=== PATIENT | female | born 2000 | race Caucasian/White ===

== ENCOUNTER 2020-09-10 06:49 | Outpatient (CLI) | payer OTHER, SELFPAY ==
--- NOTE | ~2020-09-10 | CT_ITS ---
EXAMINATION: CT sinus wo con DATE: 09/10/2020 07:03 INDICATION: Deviated nasal septum TECHNIQUE: Computed tomography (CT) of the paranasal sinuses was performed without intravenous contra st. The dose-length product was 266.38 mGy-cm. Automated exposure control and iterative reconstructio n technique were employed. COMPARISON: None FINDINGS: There is minimal mucosal thickening of the left anterior ethmoid air cells and the sphenoid sinuses. Mastoids are pneumatized. No air-fluid levels. No mucoperiosteal reaction. Rightward nasal septal deviation. Ostiomeatal units are patent. Left-sided casandra bullosa. Mastoids are pneumatized. IMPRESSION: 1. Mild sinus disease. Reviewed, dictated and finalized at location B. IMPRESSION: 1. Mild sinus disease.
== END 2020-09-10 06:50 | disposition home or self-care (01) ==
LOC: ANHIMG 06:51
PROVIDERS: PCP Internal Medicine; Visit Provider Otolaryngology
DX: J34.2 Deviated nasal septum (principal); J32.9 Chronic sinusitis, unspecified
CPT/HCPCS: 70486

== ENCOUNTER 2020-10-03 01:35 | Outpatient (CLI) | payer OTHER, SELFPAY ==
[2020-10-03 21:19] LABS: SARS-CoV-2 RNA PCR Negative
== END 2020-10-03 01:36 | disposition home or self-care (01) ==
LOC: ANHCOVIDDT 01:35
PROVIDERS: PCP Internal Medicine; Visit Provider Otolaryngology
DX: Z01.812 Encounter for preprocedural laboratory examination (principal); Z20.828 Contact with and (suspected) exposure to other viral communicable diseases
CPT/HCPCS: 87635; C9803; U0003

== ENCOUNTER 2020-10-06 01:15 | Day surgery (SDC) | payer OTHER, SELFPAY ==
[2020-09-28 14:23] VITALS: BMI 25.8
--- NOTE | 2020-10-05 06:21 | PM.HPGS ---
History of Present Illness History of Present Illness Consent: Risks, benefits, and alternatives have been discussed and questions answered. Patient agrees to proceed with procedure. Chief complaint: Nasal Septal Deviation Narrative: Jose Holbrook is a 20 year old female excision. Review of Systems ENT: Reports nasal obstruction PMFSH Past Medical History Medical History (Updated 09/14/20 @ 10:43 by Sharita Betancur) Gonorrhea Family History Family History Grandparent Cancer Social History Social History Smoking status: Never smoker Spiritual care concerns: No Meds Home Medications and Allergies Home Medications Medication Instructions Recorded Confirmed Type No Home Medications 09/28/20 09/28/20 History Allergies Allergy/AdvReac Type Severity Reaction Status Date / Time No Known Allergies Allergy Verified 09/28/20 14:23 Exam Narrative: Exam Narrative: the nose was examined and the septum was deviated with partial obstruction to the affect that side the turbinates were swollen there was swelling on the other side of the turbinate plan septoplasty possible turbinectomy Assessment and Plan Additional Plan plan is for a septoplasty to alleviate nasal obstruction and possible bilateral turbinectomy
--- NOTE | 2020-10-05 10:03 | WPDANESEPPF ---
Anes - Initial Pre Proc Eval Procedure: Operation Date: 10/06/20 09:00 Proposed Procedures p Septoplasty - Xavier Razo MD Date/Time: 10/05/20 10:03 Surgeon: Xavier Razo MD Pre Op Diagnosis: Nasal Septal Deviation Patient Data Age: 20 Gender: F Height: 1.68 m Weight: 72.57 kg Allergies Allergy/AdvReac Type Severity Reaction Status Date / Time No Known Allergies Allergy Verified 10/06/20 07:20 Home Medications Medication Instructions Recorded Confirmed Type No Home Medications 09/28/20 09/28/20 History Patient hx anesthesia problems: post op nausea/vomiting Family hx anesthesia problems: none PMFSH Past Medical History Medical History (Updated 09/14/20 @ 10:43 by Sharita Betancur) Gonorrhea Family History Family History Grandparent Cancer Social History Social History Smoking status: Never smoker Spiritual care concerns: No Anes - Eval Final PreProcedure Day of Procedure 10/05/20 10:03 Patient weight: overweight Heart: regular rate and rhythm Lungs: clear to auscultation and normal air movement Airway: Mallampati scale class II Neurological: alert and oriented Last oral intake: >/= 8 hours ASA classification: I Emergent: no Anesthetic plan: proceed Anesthesia type and monitoring: general ETT and standard monitoring Informed Consent: The patient's anesthetic plan and its attendant risks and benefits were discussed with the patient/family/POA. Questions were solicited and answers provided to the satisfaction of the patient/family/POA.
[2020-10-06] VITALS (10 sets, daily range): BP systolic 109–127; BP diastolic 63–82; PULSE 58–91; RESP 12–16; TEMP 36.1–36.6; O2SAT 100
--- NOTE | 2020-10-06 05:16 | PM.HPGS ---
History of Present Illness History of Present Illness Consent: Risks, benefits, and alternatives have been discussed and questions answered. Patient agrees to proceed with procedure. Chief complaint: Nasal Septal Deviation Narrative: Jose Holbrook is a 20 year old female has a history of nasal obstruction can't breathe out of her nose needs a septoplasty Review of Systems Review of Systems: All systems reviewed & are unremarkable except as noted in HPI and below PMFSH Past Medical History Medical History (Updated 09/14/20 @ 10:43 by Sharita Betancur) Gonorrhea Family History Family History Grandparent Cancer Social History Social History Smoking status: Never smoker Spiritual care concerns: No Meds Home Medications and Allergies Home Medications Medication Instructions Recorded Confirmed Type No Home Medications 09/28/20 09/28/20 History Allergies Allergy/AdvReac Type Severity Reaction Status Date / Time No Known Allergies Allergy Verified 09/28/20 14:23 Assessment and Plan Additional Plan Plan is a septoplasty
--- NOTE | 2020-10-06 05:38 | WPDHPUPDATE1 ---
History and Physical Update Update Date/Time: 10/06/20 05:38 History and Physical has been reviewed, including an updated exam of the patient. There are NO changes in the patient's condition. Risks, benefits, and alternatives have been discussed and questions answered. Patient agrees to proceed with procedure.
[2020-10-06] MEDS: ACETAMINOPHEN 500 MG TABLET 1000 MG PO (07:46)
[2020-10-06] MEDS: LACTATED RINGERS 1,000 ML 30 ML IV CONT (07:46)
[2020-10-06] MEDS: LIDO 1%/EPINEPHRINE 1:100,000 20 ML VIAL INFILTRATE (08:37)
[2020-10-06] MEDS: COCAINE HCL (*CRX) 4% TOP SOLN 4 ML VIAL 1 APPLIC TOPICAL (08:38)
--- NOTE | 2020-10-06 08:50 | PM.PROC ---
Procedure Note - Detailed Date of procedure: 10/06/20 Pre-op diagnosis: Nasal Septal Deviation Nasal septal deviation Post-op diagnosis: same Procedure performed: Septoplasty Description of procedure: Patient was prepped and draped in usual fashion after general anesthesia. The nose was injected with xylocaine with Adrenalin and packed with Neosporin Tyler-Synephrine on cottonoids. A [] anant transfixation was made anterior and posterior tunnel was elevated. The bony cartilage junction . The bony deviation was removed in its entirety. Swung the cardilege and bone to the midline nose open on both sides. The nose was then packed with Surgicel patient awakened returned to recovery good condition. Anesthesia: GETA Surgeon: Xavier Razo MD Estimated blood loss (mL): 10 Drains: No Packing: No Complications: No immediate complications Condition: stable Disposition: PACU Findings: Nasal septal deviation
== END 2020-10-06 10:25 | disposition home or self-care (01) ==
PROVIDERS: PCP Internal Medicine; Visit Provider Otolaryngology
PROC: (CPT 30520; principal; 2020-10-06 09:00)
DX: J34.2 Deviated nasal septum (principal)
CPT/HCPCS: 30520; A9270; J0330; J1100; J2001; J2250; J2405; J2704; J3010; J7120

== ENCOUNTER 2020-10-23 09:54 | Outpatient (CLI) | payer OTHER, SELFPAY ==
[2020-10-23 11:12] LABS: SARS-CoV-2 Ag Negative (Negative)
== END 2020-10-23 09:55 | disposition home or self-care (01) ==
LOC: CHSLAB 09:58
PROVIDERS: PCP Internal Medicine; Visit Provider Internal Medicine
DX: Z20.828 Contact with and (suspected) exposure to other viral communicable diseases (principal)
CPT/HCPCS: 87426

== ENCOUNTER 2022-07-04 09:05 | Outpatient (CLI) | payer OTHER, BC, SELFPAY ==
[2022-07-06 08:48] LABS: TB Skin Test Erythema 0 mm; TB Skin Test Induration 0 mm (0-10); TB Skin Test Interpretation Negative (Negative); TB Skin Test Site Right Arm
== END 2022-07-04 09:06 | disposition home or self-care (01) ==
LOC: CHSLAB 09:08
PROVIDERS: PCP Internal Medicine; Visit Provider Internal Medicine
DX: Z02.9 Encounter for administrative examinations, unspecified (principal)
CPT/HCPCS: 36415; 86580

== ENCOUNTER 2024-04-18 12:30 | Outpatient (CLI) | payer OTHER, BC, SELFPAY ==
--- NOTE | ~2024-04-18 | US_ITS ---
EXAMINATION: US pelvic complete w TV DATE: 04/18/2024 12:58 INDICATION: Evaluate IUD placement Comparison:No prior studies for comparison. TECHNIQUE: Multiple transabdominal and endovaginal sonographic images of the pelvis performed. FINDINGS: The uterus measures 8 x 5.4 x 3.6 cm. IUD is present in the endometrium. There are nabothia n cysts. The right ovary measures 2.7 x 2 x 1.4 cm and the left ovary measures 3.2 x 1.8 x 1.5 cm. There are small follicles in each ovary. Normal doppler signal in both ovaries. There is no free fluid in the pelvis. There are no abnormal masses seen on either side. IMPRESSION: 1. Unremarkable pelvic ultrasound. Reviewed, dictated and finalized at location B.
== END 2024-04-18 12:31 | disposition home or self-care (01) ==
PROVIDERS: PCP Internal Medicine; Visit Provider Nurse Practitioner
DX: T83.32XA Displacement of intrauterine contraceptive device, initial encounter (principal)
CPT/HCPCS: 76830; 76856

== ENCOUNTER 2024-07-01 13:38 | Outpatient (CLI) | payer OTHER, SELFPAY ==
[2024-07-03 13:26] LABS: TB Skin Test Erythema 0 mm; TB Skin Test Induration 0 mm (0-10); TB Skin Test Interpretation Negative (Negative); TB Skin Test Site Left Arm
== END 2024-07-01 13:39 | disposition home or self-care (01) ==
LOC: CHSLAB 13:40
PROVIDERS: PCP Internal Medicine; Visit Provider Internal Medicine
DX: Z11.1 Encounter for screening for respiratory tuberculosis (principal)
CPT/HCPCS: 36415; 86580